=== PATIENT | female | born 1995 | race African-American/Black ===

== ENCOUNTER 2023-07-11 02:39 | Emergency (ER) | payer SELFPAY ==
[2023-07-11 02:56] VITALS: BP 105/74; PULSE 98; RESP 20; TEMP 99.8; BMI 33.4
[2023-07-11] MEDS ORDERED: ACETAMINOPHEN 1000 MG/100 ML BAG IVPB ONE (03:21)
[2023-07-11] MEDS ORDERED: SODIUM CHLORIDE 1,000 ML IV STA (03:21)
[2023-07-11] MEDS ORDERED: ALBUTEROL SO4 2.5/IPRATROPIUM 0.5 INH SOL 3 ML VIAL.NEB. NEB ONE ×2 (03:21→03:37)
[2023-07-11] MEDS ORDERED: ACETAMINOPHEN INJECTION 100 ML IVPB ONE (03:37)
[2023-07-11 04:11] LABS: BASO % 1.1 % (0-2.0); EOS % 3.4 % (0-4.5); HEMATOCRIT 36.4 % (32.4-45.2); HEMOGLOBIN 12.3 GM/dL (10.7-15.3); LYMPH % 7.4 % (8-40); MCH 29.2 pg (25.7-33.7); MCHC 33.8 g/dl (32.0-36.0); MEAN CELL VOLUME 86.3 fl (80-96); MEAN PLT VOLUME 8.6 fl (7.5-11.1); MONO % 14.1 % (3.8-10.2); PLATELET COUNT 233 10^3/uL (134-434); RBC 4.22 M/mm3 (3.60-5.2); RDW 14.2 % (11.6-15.6); WHITE BLOOD COUNT 6.1 K/mm3 (4.0-10.0)
[2023-07-11 04:29] LABS: POTASSIUM 4.1 mmol/L (3.5-5.1)
[2023-07-11 04:31] LABS: ALBUMIN 3.9 g/dl (3.4-5.0); CALCIUM 8.7 mg/dL (8.5-10.1)
[2023-07-11 04:32] LABS: BLOOD UREA NITROGEN 6.6 mg/dL (7-18); MAGNESIUM 1.8 mg/dL (1.8-2.4)
[2023-07-11 04:34] LABS: CREATININE 0.9 mg/dL (0.55-1.3)
[2023-07-11 04:36] LABS: BILIRUBIN,TOTAL 0.2 mg/dL (0.2-1); TOT PROT 7.4 g/dl (6.4-8.2)
[2023-07-11] MEDS ORDERED: ALBUTEROL SO4 HFA INHALER IH PRN (05:30)
[2023-07-11] MEDS ORDERED: methylPREDNISolone NA SUCC 125 MG/2 ML VIAL IVPB ONE (05:30)
[2023-07-11] MEDS ORDERED: DEXAMETHASONE SOD PHOSPHATE 4 MG/1 ML VIAL IVPUSH ONE (05:31)
[2023-07-11] MEDS ORDERED: DEXAMETHASONE SOD PHOSPHATE 4 MG/1 ML VIAL ONE (05:34)
[2023-07-11] MEDS ORDERED: DEXAMETHASONE SOD PHOSPHATE 10 MG/1 ML VIAL IVPUSH SCH (10:00)
== END 2023-07-11 06:16 | disposition home or self-care (01) ==
LOC: JER 02:39
PROC: 3E033NZ Introduction of Analgesics, Hypnotics, Sedatives into Peripheral Vein, Percutaneous Approach (ICD-10-PCS; principal; 2023-07-11)
PROC: 3E033GC Introduction of Other Therapeutic Substance into Peripheral Vein, Percutaneous Approach (ICD-10-PCS; 2023-07-11)
PROC: 3E0337Z Introduction of Electrolytic and Water Balance Substance into Peripheral Vein, Percutaneous Approach (ICD-10-PCS; 2023-07-11)
PROC: 3E0F7GC Introduction of Other Therapeutic Substance into Respiratory Tract, Via Natural or Artificial Opening (ICD-10-PCS; 2023-07-11)
DX: R05.9 Cough, unspecified (principal); R07.9 Chest pain, unspecified; R11.10 Vomiting, unspecified; J10.1 Influenza due to other identified influenza virus with other respiratory manifestations; R06.2 Wheezing; R53.81 Other malaise
CPT/HCPCS: 36415; 71045-TC-FY; 80053; 83735; 84484; 84703; 85025; 93005; 93010; 99285-25

== ENCOUNTER 2023-07-17 17:11 | Emergency (ER) | payer OTHER ==
[2023-07-17 17:36] VITALS: BP 110/75; PULSE 102; RESP 17; TEMP 98.2; BMI 32.1
[2023-07-17] MEDS ORDERED: DEXAMETHASONE 4 MG TABLET (FP) ONE (17:58)
[2023-07-17] MEDS ORDERED: DEXAMETHASONE SOD PHOSPHATE 10 MG/1 ML VIAL IM ONE (18:01)
[2023-07-17] MEDS ORDERED: methylPREDNISolone NA SUCC 125 MG/2 ML VIAL IM ONE (18:03)
[2023-07-17] MEDS ORDERED: DEXAMETHASONE SOD PHOSPHATE 4 MG/1 ML VIAL ONE (18:08)
[2023-07-17] MEDS ORDERED: methylPREDNISolone NA SUCC 40 MG/1 ML VIAL ONE (18:09)
[2023-07-17] MEDS: ALBUTEROL SO4 2.5/IPRATROPIUM 0.5 INH SOL 3 ML VIAL.NEB. NEB SCH ×4 (18:14→19:00)
[2023-07-17] MEDS ORDERED: ALBUTEROL SO4 2.5/IPRATROPIUM 0.5 INH SOL 3 ML VIAL.NEB. NEB ONE (18:28)
[2023-07-17 19:38] LABS: THROAT:GRP A STREP NOT DETECTED (NOTDETECTED)
[2023-07-17] MEDS ORDERED: ALBUTEROL SO4 HFA INHALER IH ONE ×2 (20:08→20:10)
== END 2023-07-17 20:10 | disposition home or self-care (01) ==
LOC: JERFT 17:11
PROC: 3E0F7GC Introduction of Other Therapeutic Substance into Respiratory Tract, Via Natural or Artificial Opening (ICD-10-PCS; principal; 2023-07-17)
PROC: 3E023GC Introduction of Other Therapeutic Substance into Muscle, Percutaneous Approach (ICD-10-PCS; 2023-07-17)
PROC: 3E023GC Introduction of Other Therapeutic Substance into Muscle, Percutaneous Approach (ICD-10-PCS; 2023-07-17)
DX: R07.89 Other chest pain (principal); R09.89 Other specified symptoms and signs involving the circulatory and respiratory systems; R05.9 Cough, unspecified; J20.9 Acute bronchitis, unspecified; B34.9 Viral infection, unspecified; Z20.822 Contact with and (suspected) exposure to COVID-19
CPT/HCPCS: 0241U-QW; 87651; 99284-25; J1100